=== PATIENT | male | born 1960 | race Caucasian/White ===

== ENCOUNTER 2019-10-25 05:57 | Emergency (ER) | payer OTHER ==
[~2019-10-25] VITALS: Ht 172.7 cm; Wt 94.8 kg
[2019-10-25] MEDS ORDERED: TRAMADOL 50 MG50 MG PO (06:18)
[2019-10-25 06:34] LABS: MPV 8.9 fl. (7.2-11.1); NUCLEATED RBCS 0 /100WBC
[2019-10-25 06:36] LABS: ABSOLUTE EOSINOPHILS 0.2 thou/uL (0.0-0.7); ABSOLUTE LYMPHOCYTES 1.9 thou/uL (0.8-5.3); ABSOLUTE MONOCYTES 0.8 thou/uL (0.0-1.2); ABSOLUTE NEUTROPHILS 4.8 thou/uL (1.6-8.1); BASOPHILS 0.5 %; EOSINOPHILS 2.9 %; HEMATOCRIT 42.7 % (42.0-52.0); HEMOGLOBIN 14.5 gm/dL (14.0-18.0); LYMPHOCYTES 24.7 %; MCH 31.3 pg (26.0-34.0); MCV 92.1 fL (80.0-100.0); MONOCYTES 9.8 %; PLATELET COUNT* 217 thou/uL (150-400); POLYS 62.1 %; RBC 4.63 mil/uL (4.50-6.00); RDW-CV 13.1 % (10.5-14.5); WBC 7.7 thou/uL (4.0-11.0)
[2019-10-25 06:52] LABS: PROTIME 10.6 Seconds (9.20-11.50)
[2019-10-25 06:53] LABS: CALCIUM 8.8 mg/dL (8.5-10.1); CREATININE 1.1 mg/dL (0.6-1.3); POTASSIUM 3.9 mmol/L (3.5-5.1)
[2019-10-25 07:06] LABS: ALBUMIN 3.6 g/dL (3.4-5.0); TOTAL BILIRUBIN 0.9 mg/dL (<0.1-1.0); TOTAL PROTEIN 7.5 g/dL (6.4-8.2)
[2019-10-25] MEDS ORDERED: MEDROLDOSEPACK PO (08:11)
[2019-10-25] MEDS ORDERED: HYDROCODON-ACE1 EAC7 PO (08:11)
[2019-10-25 10:09] VITALS: BP 129/85
--- NOTE | 2019-10-25 13:07 | EKG ---
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: ID : [id number] Requested By: Alissa Michael Order Number: [id number] MD: Jadiel Lundy Measurements Intervals [place] Rate: 137 P: [place]: QRS: 2 QRSD: 103 T: -78 QT: 305 QTc: 461 Interpretive Statements Junctional tachycardia Repol abnrm suggests ischemia, diffuse leads No previous ECG available for comparison Electronically Signed On 10-25-2019 13:07:16 CDT by Jadiel Lundy [email or web address] <ELECTRONICALLY SIGNED> By: Jadiel Lundy MD, [facility] 10/25/19 1307 5 5 Jadiel Lunyd MD, [facility] /EPI
--- NOTE | 2019-10-25 13:08 | EKG ---
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: [place] : [id number] Requested By: Alissa Michael Order Number: [id number] MD: Jadiel Lundy Measurements Intervals [place] Rate: 67 P: 30 ID: [id number] QRS: -4 QRSD: 111 T: -7 QT: 388 QTc: 410 Interpretive Statements Sinus rhythm Left ventricular hypertrophy, by voltage ST segment depression anterolateral leads, consider ischemia No previous ECG available for comparison Electronically Signed On 10-25-2019 13:07:57 CDT by Jadiel Lundy [email or web address] <ELECTRONICALLY SIGNED> By: Jadiel Lundy MD, [facility] 10/25/19 1307 0633 Jadiel Lundy MD, [facility] /EPI
== END 2019-10-25 10:10 | disposition home or self-care (01) ==
LOC: M.ERS 05:57
PROVIDERS: Emergency Medicine
DX: R07.89 Other chest pain (principal); M54.6 Pain in thoracic spine